=== PATIENT | female | born 1990 | race Caucasian/White ===

== ENCOUNTER 2020-10-26 12:42 | Emergency (ER) | payer BC, MEDICAID, SELFPAY ==
[2020-10-26 12:46] VITALS: BP 122/78; PULSE 84; RESP 18; TEMP 36.7; O2SAT 97; BMI 26.5
--- NOTE | 2020-10-26 13:03 | ED_ITS ---
HPI - Arrhythmia/Palpitations General: Chief Complaint: Arrhythmia/Palpitations Stated Complaint: irregular heart beat/sob Time Seen by Provider: 10/26/20 12:55 History of Present Illness: HPI narrative: Patient said she started smoking again about a month ago then started having palpitations in her chest- fgelt short of breath and also started drinking sodas again. And when she does both her heart feels like it is skipping beats and she feels short of breath. complaint: skipped beats Onset (ago): week(s) Duration: intermittent Severity: mild Associated symptoms: Reports other (Stress); Deny anxiety, nausea or vomiting Review of Systems Const: Denies: fever(s), chills or body aches Eyes: Denies: change in vision or blurry vision ENMT: Denies: throat pain or nasal congestion Card: Reports: palpitations and other (Shortness of breath with the palpitations); Denies: chest pain or dyspnea on exertion Resp: Denies: dyspnea, productive cough or non-productive cough GI: Denies: abdominal pain, nausea or vomiting Musc: Denies: extremity pain Skin/Breast: Denies: rash Neuro: Denies: headache(s) Psych: Denies: anxiety or depression Neptali/Lymph: Denies: easy bruising PFSH ED PFSH: Family History (Updated 10/22/20 @ 07:51 by Casandra Petty) Mother Hypertension Denies family history of Colon cancer Ovarian cancer Diabetes Heart disease Breast cancer Uterine cancer Thyroid disease Stroke Social History (Updated 10/22/20 @ 07:52 by Casandra Petty) Additional social history: - Tobacco use: former Alcohol use: denies Drug use: former-marijuana Female Reproductive History: Date of last menstrual period: 09/26/20 Physical Exam Const: COMMON NORMALS: no acute distress, average body habitus and patient oriented x3 HENMT: COMMON NORMALS: normocephalic HEAD & SCALP: normal to inspection and normocephalic FACE & SINUS: normal facial exam Eye: COMMON NORMALS: conjunctivae normal GENERAL EYE: appearance normal, both eyes and all related structures CONJUNCTIVA: Yes conjunctivae normal Neck/C-Spine: COMMON NORMALS: no JVD Chest: COMMONS NORMALS: normal inspection of the chest Resp: COMMON NORMALS: normal respiratory effort and clear to auscultation bilaterally AUSCULTATION: clear to auscultation bilaterally Cardio: COMMON NORMALS: no JVD, regular rate and regular rhythm RATE: regular rate RHYTHM: regular rhythm GI: COMMON NORMALS: Normal to inspection, nondistended, normoactive bowel sounds present Extremity: COMMON NORMALS: normal to inspection and full ROM Neuro: COMMON NORMALS: patient oriented x3 Course Vital Signs: Vital signs: Vital Signs Temperature 98.1 F 10/26/20 12:46 Pulse Rate 84 10/26/20 12:46 Respiratory Rate 18 10/26/20 12:46 Blood Pressure 122/78 10/26/20 12:46 Pulse Oximetry 97 10/26/20 12:46 MDM - Arrhythmia/Palpitations MDM Narrative: Medical decision making narrative: Spoke at length with patient about how smoking and drink caffeine can cause palpitations heart. Patient said she quit smoking for over a year and a half. Just started back appear this past month. And she can see were smoking and drinking sodas are tied into his palpitations. We discussed stopping smoking and going to caffeine free soda. She has a mom and brother who also are on medication for irregular heart rhythm. Patient is to follow-up with her family medical provider Discharge Plan Discharge Prescriptions: No Action norethindrone (contraceptive) 0.35 mg tablet 0.35 mg PO DAILY Qty: 84 RF: 3 Coding Level of Care Code ED Nutrition Worker for Pietro Nunez
--- NOTE | 2020-10-26 13:03 | XRR_ITS ---
PROCEDURE INFORMATION: Exam: XR Chest, 1 View Exam date and time: 10/26/2020 1:18 PM Age: 30 years old Clinical indication: Shortness of breath; Additional info: SOB TECHNIQUE: Imaging protocol: XR of the chest Views: 1 view. COMPARISON: No relevant prior studies available. FINDINGS: Lungs: Unremarkable. No consolidation. Pleural space: Unremarkable. No pleural effusion. No pneumothorax. Heart/Mediastinum: Unremarkable. No cardiomegaly. Bones/joints: Unremarkable. XR/XR chest 1V portable [id number] IMPRESSION: No acute findings.
--- NOTE | 2020-10-26 13:08 | ECG_ITS ---
[facility] Test Date: 2020-10-26 Pat Name: Madalyn Lou Department: Room: Gender: Female Registered Massage Therapist: : 1990 Requested By: Rasheed Byers Order Number: [id number] Casey MD: Maria Teresa Gold M.D. Measurements Intervals [place] Rate: 82 P: 29 CO: 108 QRS: 41 QRSD: 89 T: -24 QT: 340 QTc: 399 Interpretive Statements SINUS RHYTHM WITH SHORT CO INTERVAL NONSPECIFIC T-WAVE ABNORMALITY WARNING: DATA QUALITY MAY AFFECT INTERPRETATION No previous ECG available for comparison Electronically Signed On 10-27-2020 9:17:43 DIVIDEND CLERK by Maria Teresa Gold M.D. [id number]
[2020-10-26 13:34] VITALS: BP 108/67; PULSE 75; RESP 19; O2SAT 97
== END 2020-10-26 13:35 | disposition home or self-care (01) ==
PROVIDERS: Emergency Provider Nurse Practitioner Family; PCP Family Medicine
DX: R00.2 Palpitations (principal)
CPT/HCPCS: 12345; 71045; 93005; 99282; 99283

== ENCOUNTER 2021-02-15 11:36 | Emergency (ER) | payer BC, MEDICAID, SELFPAY ==
[2021-02-15 11:45] VITALS: BP 140/81; PULSE 104; RESP 15; TEMP 36.7; O2SAT 100; BMI 26.9
--- NOTE | 2021-02-15 12:04 | W.ED.RECABL ---
HPI - Recheck/Abnormal Lab/Rx General: Chief Complaint: Abdominal Pain Stated Complaint: wants checked for ectopic Time Seen by Provider: 02/15/21 11:51 History of Present Illness: HPI narrative: Patient thinks she is about 4-5 weeks and wants to be checked for ectopic because she had one 3 years ago with surgery and her OB at that time told her if she even got to have US early to determine. Patient denies any symptoms at this time, no bleeding and no pain. She denies fevers or urinary complaints or vaginal discharge Review of Systems Narrative: General: denies fatigue, fever or chills HEENT: denies ear pain, denies nasal congestion, denies vision changes, denies sore throat Neck: denies masses or pain Resp: denies cough, denies shortness of breath, denies pleuritic pain Cardio: denies chest pain, denies edema GI: denies abdominal pain, denies N/V/D, denies black/tarry or bloody stools : denies hematuria, denies dysuria Neuro: denies headache, denies dizziness, denies motor or sensory changes Musculoskeletal: denies pain, denies swelling Skin: denies rashes Psych: denies SI or HI Endocrine: denies thyroid symptoms, denies lymphadenopathy all over ROS reviewed and patient denies PFSH ED PFSH: Family History Mother Hypertension Denies family history of Colon cancer Ovarian cancer Diabetes Heart disease Breast cancer Uterine cancer Thyroid disease Stroke Social History Smoking and tobacco status: current every day smoker cigarettes Packs smoked per day: 0.5 Alcohol intake: never Substance/Drug Use: never Additional social history: - Tobacco use: former Alcohol use: denies Drug use: former-marijuana Female Reproductive History: Date of last menstrual period: 01/16/21 Physical Exam Narrative: EXAM NARRATIVE: General: no distress, HEENT: normal eyes, normal mouth, normal external nose Neck: FROM Resp: normal effort, no tachypnea, no stridor Cardio: normal rate, no edema GI: soft, flat, non distended, no pain on exam : deferred Neuro: normal coordination, normal speech, no gross motor or sensory deficits Musculo: normal ROM, no gross deformities Skin: no rash Psych: normal behavior normal mood and effect Course Vital Signs: Vital signs: Vital Signs Temperature 98.1 F 02/15/21 11:45 Pulse Rate 104 H 02/15/21 11:45 Respiratory Rate 18 02/15/21 12:50 Blood Pressure 140/81 02/15/21 11:45 Pulse Oximetry 100 02/15/21 11:45 MDM - Recheck/Abnormal Lab/Rx MDM Narrative: Medical decision making narrative: Discussed with patient we will check a beta hCG first to determine if she is far enough along so we could obtain an ultrasound. Unfortunately her beta quant is only 414 so an ultrasound is not can to provide any benefits at this time she continues to deny any symptoms or any pain she is leaving today to drive to [place] for a week so she wanted to try to get this ultrasound done before she left. I spoke to Dr. Truong OB on-call for Dr. Beauchamp and she agrees she needs an ultrasound and recommend she get one on Wednesday and they can schedule it as an outpatient however I do not have capabilities on the weekend to schedule any outpatient testing. Discussed with patient that if she has any type of symptoms while she is on vacation she needs to go to the local ER she is look for bleeding pain. Her salpingoectomy was on her right 3 years ago She has no left-sided pain at all today. Discussed with patient that OB did recommend she get an ultrasound done on Wednesday however patient has to leave today for her vacation so gave the patient strict precautions she has any symptoms while on her vacation she needs to go to the closest ER but on Wednesday she should still call OB to get this set up for when she returns Lab Data: Labs: Lab Results 02/15/21 Range/Units 12:20 Ser , Tony i-Qnt 414.10 mIU/mL Discharge Plan Discharge Patient Disposition: Home Clinical Impression: Qualifiers: Weeks of gestation: less than 8 weeks Qualified Code(s): Z3A.01 - Less than 8 weeks gestation of Condition: Stable Prescriptions: No Action Tylenol Extra Strength 500 mg Tablet 1,000 mg PO PRN RF: 0 Discharge Orders: Discharge ED (Routine); Ordered 02/15/21 Ordered By: Flavia Ricci Referrals: Javier Beauchamp MD [Physician] - 1-3 days (Patient needs US to determine location of ) Brionna Douglas, [Primary Care Provider] - Discharge Diet: Usual diet Discharge Activity: Resume usual activity Patient Instructions: Ectopic (ED) Activity Restrictions/Additional Instructions: Continue vitamins On Wednesday it is recommended you call Dr. Beauchamp's office explained to them you were seen in the emergency room and we spoke to Dr. Truong and she recommends you get an ultrasound on Wednesday but since she will be out of town she recommends you get it done as soon as you return. In the meantime if you have any type of pain or bleeding you need to report to the local emergency room for a pelvic ultrasound. Your hormone level today was 414 Coding Level of Care Code ED Production Truck Driver for Pietro Nunez
--- NOTE | 2021-02-15 12:14 | PC.PHAR ---
pt had nuvaring filled on 02/03/21 84d/s pt states she didnt use states she found out she was
[2021-02-15 12:50] VITALS: RESP 18
[2021-02-15 13:36] VITALS: RESP 18
== END 2021-02-15 13:37 | disposition home or self-care (01) ==
PROVIDERS: Emergency Provider Emergency Medicine; PCP Family Medicine
DX: O26.91 Pregnancy related conditions, unspecified, first trimester (principal); R10.9 Unspecified abdominal pain; Z3A.01 Less than 8 weeks gestation of pregnancy; O99.331 Smoking (tobacco) complicating pregnancy, first trimester; F17.210 Nicotine dependence, cigarettes, uncomplicated
CPT/HCPCS: 84702; 99282

== ENCOUNTER → 2022-04-14 09:55 | Outpatient (BNVA) | payer BC, MEDICAID, SELFPAY | PROVIDERS: PCP Family Medicine; Visit Provider Obstetrics & Gynecology | DX: Z32.01 Encounter for pregnancy test, result positive (principal) | CPT/HCPCS: 84702 ==

== ENCOUNTER 2022-04-27 07:26 | Outpatient (CLI) | payer BC, MEDICAID, SELFPAY ==
--- NOTE | 2022-04-27 07:45 | US_ITS ---
WS: [id number] EARLY OBSTETRICAL ULTRASOUND (<14 WEEKS). HISTORY: Follow-up. COMPARISON: 03/03/2021 Single intrauterine gestation is identified. No cardiac activity is identified on today's examination . The gestational sac is irregular and elongated with an adjacent small subchorionic hemorrhage. Ther e is a yolk sac present measuring 5 mm. There is an adjacent crown-rump length with no cardiac activi ty. Raysal-rump length and cardiac activity were identified on the study of 03/03/2021. The crown-rump length measures 0.4 cm was corresponds to a gestation of 6 weeks 1 day. No free fluid. Both ovaries are identified and negative. US/US OB transvaginal [id number] IMPRESSION: 1. Embryonic demise. No cardiac activity or appropriate growth of the gestatio n that was described on 03/03/2021. 2. Raysal-rump length corresponds to gestation of 6 weeks 1 day. No significant growth since the prior ultrasound of 03/03/2021. 3. Abnormal gestational sac and a small subchorionic hemorrhage.
== END 2022-04-27 07:27 | disposition home or self-care (01) ==
PROVIDERS: PCP Family Medicine; Visit Provider Obstetrics & Gynecology
DX: Z34.91 Encounter for supervision of normal pregnancy, unspecified, first trimester; Z3A.01 Less than 8 weeks gestation of pregnancy
CPT/HCPCS: 76817

== ENCOUNTER → 2022-04-29 10:10 | Outpatient (BNVA) | payer BC, MEDICAID, SELFPAY | PROVIDERS: PCP Family Medicine; Visit Provider Obstetrics & Gynecology | DX: Z34.90 Encounter for supervision of normal pregnancy, unspecified, unspecified trimester (principal) | CPT/HCPCS: 81000 ==

== ENCOUNTER 2022-05-10 10:59 | Emergency (ER) | payer BC, MEDICAID, SELFPAY ==
--- NOTE | 2022-05-10 11:24 | ED_ITS ---
HPI - General Adult General: Chief complaint: Recheck/Abnormal Lab/Rx Stated complaint: , not sure how long Time Seen by Provider: 05/10/22 11:06 Source: patient Mode of arrival: ambulatory Limitations: no limitations History of Present Illness: This patient returns to the emergency department because she is attempting to determine the results of her pelvic ultrasound performed on 06 May. She is G4 para 2 at approximately 9 weeks gestation from her last menstrual period of 01 Mar 2022. Part of her evaluation last week was a visit with Dr. Alexi FRANK who ordered an ultrasound. The patient had not heard the results of those ultrasound so therefore presents to the emergency department without information. She denies any current complaints to include fevers chills abdominal pain vaginal bleeding, cramping etc. Her only goal today is determining her ultrasound report. Associated symptoms: Reports no associated symptoms; Deny vomiting Review of Systems Const: Denies: fever(s) or chills GI: Denies: abdominal pain, vomiting or diarrhea : Denies: flank pain, difficulty voiding, dysuria, urinary frequency, vaginal bleeding, vaginal discharge or pelvic pain PFS ED PFSH: Medical History No pertinent past medical history neghx: htn,dm,thyroid,dvt/pe Surgical History Hx of unilateral salpingectomy (~02/19/18) Laparoscopic right partial salpingectomy by Dr. Groves at [facility] in [place], [place]. Family History Mother Hypertension Denies family history of Colon cancer Ovarian cancer Diabetes Heart disease Breast cancer Uterine cancer Thyroid disease Stroke Social History Smoking and tobacco status: current every day smoker cigarettes Packs smoked per day: 0.5 Alcohol intake: never Additional social history: - Tobacco use: former Alcohol use: denies Drug use: former-marijuana Female Reproductive History: Date of last menstrual period: 01/16/21 Physical Exam Narrative: EXAM NARRATIVE: The patient is alert makes good eye contact and is in no acute distress. She speaks in goal-directed sentences and is calm. Const: COMMON NORMALS: no acute distress and alert ORIENTATION/CONSCIOUSNESS: Yes oriented to person and Yes oriented to place HENMT: COMMON NORMALS: normocephalic HEAD & SCALP: normocephalic Eye: COMMON NORMALS: Equal, round and reactive pupils present PUPIL: Yes Equal, round and reactive pupils present Resp: COMMON NORMALS: normal respiratory effort EFFORT & INSPECTION: Yes able to speak in complete sentences Extremity: COMMON NORMALS: normal to inspection Neuro: SENSORIUM/ORIENTATION: Yes alert, Yes oriented to person and Yes oriented to place SPEECH: speech normal GAIT: Yes Normal gait present Psych: COMMON NORMALS: mental status grossly normal, cooperative and normal affect MDM - General Adult Medical Decision Making Patient without any clinical complaint only seeking imaging report information. I printed her ultrasound report from 06 May this year. It was read to her in completion. Report essentially was negative for any viable and showed findings consistent with a blighted ovum without any other ongoing pathology. I then consulted her attending metal storage worker Dr. Truong. She agreed to see the patient tomorrow to discuss treatment options. The patient is clinically stable without any complaints. She had no additional emergency department evaluation or treatment is indicated at this time. Patient was very appreciative of our time and interaction. She is stable at this time. I did discuss return precautions to include development of abdominal pain, vaginal bleeding or any other concerns. Medical Records I reviewed the patient's medical records. Discharge Plan Discharge Patient Disposition: Home Clinical Impression: Blighted ovum Condition: Stable Prescriptions: No Action No Known Home Medications Discharge Orders: Discharge ED (Routine); Ordered 05/10/22 Ordered By: Dmitri Mcgrath Referrals: Elsy Truong MD [Physician] - 1-3 days Brionna Douglas DO [Primary Care Provider] - Discharge Diet: Usual diet Discharge Activity: Resume usual activity Patient Instructions: Opioid Safety Activity Restrictions/Additional Instructions: Call Dr. Truong office in the morning to arrange follow-up with her tomorrow. She will discuss your treatment options at that time. If you develop any abdominal pain, vaginal bleeding other concerns return to this or the nearest emergency department immediately. Coding Level of Care Code ED Street Department Dispatcher for Pietro Nunez
[2022-05-10 11:32] VITALS: BMI 25.6
[2022-05-10 11:35] VITALS: BP 111/74; PULSE 92; RESP 16; TEMP 37.5; O2SAT 97
== END 2022-05-10 11:39 | disposition home or self-care (01) ==
PROVIDERS: Emergency Provider Emergency Medicine; PCP Family Medicine
DX: O02.0 Blighted ovum and nonhydatidiform mole (principal); F17.210 Nicotine dependence, cigarettes, uncomplicated
CPT/HCPCS: 99281

== ENCOUNTER 2022-06-30 10:45 | Day surgery (SDC) | payer BC, MEDICAID, SELFPAY ==
[2022-06-29 12:03] VITALS: BMI 23.8
--- NOTE | 2022-06-30 10:00 | P.ANESASSM_ITS ---
Pre-Anesthetic Assessment Height/Weight: Height 1.57 m Weight 58.967 kg Preop Diagnosis: Incomplete miscarriage Operation Date: 06/30/22 12:05 Proposed Procedures p Hysteroscopy, dilation and curettage with Mysosure 76315, [id number],O03.4(Not Applicable) - Elsy Truong MD s Dilation And Curettage (D&C)(Not Applicable) - Elsy Truong MD Familial anesthetic complications: none Was Beta Shannan taken within 24 hours: N/A Was Clonidine taken within 24 hours: N/A Last intake: Today coffee w/ heavy cream at 0930 Social Tobacco and No alcohol Exam alert, oriented x 3, clear to auscultation bilaterally and regular rate & rhythm Airway Submandibular: within normal limits Cervical ROM: within normal limits Mallampati: Class I Dentition: full History/ROS No significant complaints Pulmonary None reported CV/HEM None reported None reported Hepatic None reported GI None reported Metabolic None reported Musc/skel None reported Neuropsych None reported Anesthetic Plan ASA status: 1 Anesthesia: Anesthesia Evaluation Other Pertinent Information Discussed patient/case with Doctor Truong. I advised Doctor Truong that we would need to wait for the patient to be 6 hours NPO unless this case was more urgent in nature. Doctor Truong plans to reschedule the case for another day. I discussed rationale for delay of surgery with Ms. Lou including mechanism and risk factors for perioperative aspiration as well as the morbidity/mortality associacted with aspiration events. I apologized to the patient for the inconvenience of her delay and need to reschedule. I reviewed ASA guidelines for NPO status with the patient, as well as our general institutional policy to have patient's NPO after midnight. The patient said she was instructed to not eat or drink after midnight when she was called with pre op instructions, but that she was never told why she was to have nothing after midnight and she did not understand this direction. I advised to the patient that I would discuss this event with the RN who called her with pre op instructions and apologized that the communication was not more clear. Case to be rescheduled per Doctor Truong. Medications/Allergies Home Medications Medication Instructions Recorded Confirmed Last Taken Type No Known Home Medications 04/29/22 06/29/22 Unknown History Allergies Allergy/AdvReac Type Severity Reaction Status Date / Time fructose AdvReac weakness Uncoded 06/30/22 11:11 PFSH Anesthesia Medical History No pertinent past medical history neghx: htn,dm,thyroid,dvt/pe Surgical History Hx of unilateral salpingectomy (~02/19/18) Laparoscopic right partial salpingectomy by Dr. Groves at [facility] in [place], [place]. Family History Mother Hypertension Denies family history of Colon cancer Ovarian cancer Diabetes Heart disease Breast cancer Uterine cancer Thyroid disease Stroke Social History Smoking and tobacco status: current every day smoker (0.5 ppd) Female Reproductive History Date of last menstrual period: 01/16/21 Data Anesthesia Cardiac Studies: No Data to Display
[2022-06-30] MEDS: scopolamine 1.5 Patch 1 PATCH TRANSDERMA (10:30)
[2022-06-30 11:16] VITALS: BP 117/73; PULSE 81; RESP 17; TEMP 36.3; O2SAT 99
--- NOTE | 2022-06-30 11:45 | SUR.PREOP ---
1145-Patient had a couple of sips of coffee this morning at 9:30. Coffee had cream and sugar. Anesthesia was advised, Dr Truong was notified, and case will be cancelled today and will be rescheduled by clinic with patient. Linda in women's clinic was notified as well.
--- NOTE | 2022-06-30 11:58 | SUR.PREOP ---
1158-ancef, NS and Scop patch were all wasted due to case cancelled after pulled, spiked or placed on patient
--- NOTE | 2022-06-30 12:08 | P.HPUD_ITS ---
Surgery/Procedure H&P Update DATE OF PROCEDURE: June 30, 2022 DATE H&P PERFORMED: 06/24/22 H&P UPDATE INFORMATION: I have reviewed H&P completed within last 30 days and Changes to prior documentation as noted here CHANGES TO PREVIOUS DOCUMENTATION: The patient consumed coffee with creamer prior to admission for surgery. The case will be postponed. PREOP DIAGNOSIS: incomplete miscarriage PLANNED PROCEDURE: Operation Date: 06/30/22 12:05 Proposed Procedures p Hysteroscopy, dilation and curettage with Mysosure 34089, [id number] 120,52312,O03.4(Not Applicable) - Elsy Truong MD s Dilation And Curettage (D&C)(Not Applicable) - Elsy Truong MD
== END 2022-06-30 10:50 | disposition home or self-care (01) ==
LOC: OR 10:47
PROVIDERS: PCP Family Medicine; Visit Provider Obstetrics & Gynecology
PROC: 0UDB8ZZ Extraction of Endometrium, Via Natural or Artificial Opening Endoscopic (ICD-10-PCS; CPT 58558; principal; 2022-07-14 22:45)
PROC: (CPT 58120; 2022-07-14 22:45)
DX: O03.4 Incomplete spontaneous abortion without complication (principal); Z53.8 Procedure and treatment not carried out for other reasons
CPT/HCPCS: J7030

== ENCOUNTER 2022-07-07 | Day surgery (SDC) | payer BC, MEDICAID, SELFPAY ==
[2022-07-07 13:05] VITALS: BMI 23.8
== END 2022-07-07 23:00 | disposition home or self-care (01) ==
LOC: OR 08-09 19:47
PROVIDERS: PCP Family Medicine; Visit Provider Obstetrics & Gynecology
DX: Z01.818 Encounter for other preprocedural examination (principal)
CPT/HCPCS: 84702

== ENCOUNTER 2022-07-12 16:11 | Emergency (ER) | payer BC, MEDICAID, SELFPAY ==
[2022-07-12 16:15] VITALS: BP 118/76; PULSE 97; RESP 20; TEMP 36.7; O2SAT 100; BMI 23.8
--- NOTE | 2022-07-12 16:39 | W.ED.ABDPA2 ---
HPI - Abdominal Pain General: Chief Complaint: Abdominal Pain Stated Complaint: Possible missed miscarriage Time Seen by Provider: 07/12/22 16:20 Source: patient Mode of arrival: ambulatory History of Present Illness: 32-year-old female presents emergency room with complaint of abdominal pelvic pain. Patient had miscarriage that occurred evidently sometime in late May she has had D&C scheduled according to records 1 visit she made an June 30 when she arrived she had eaten that morning so the case was canceled. 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 There is a ultrasound report from 06 17 with a question of molar however subsequently confirmed to be retained products of conception on ultrasound from 07/07. Patient complaining of increasing pelvic cramping and discomfort now. No vaginal bleeding. MD elicited complaint: other (Pelvic pain) Associated Symptoms: Denies bloating, chills, coffee ground emesis, constipation, diarrhea, dysuria, fever(s), hematochezia, hematemesis, melena, nausea and vomiting Related Data: Date of Last Menstrual Period: 01/16/21 Review of Systems Const: Denies: fever(s), chills, body aches, change in appetite, fatigue or malaise ENMT: Denies: throat pain, ear or mastoid pain, nasal discharge or nasal congestion Card: Denies: chest pain, edema, dyspnea on exertion or orthopnea Resp: Denies: dyspnea, productive cough or non-productive cough GI: Denies: abdominal pain, nausea, vomiting, hematemesis, coffee ground emesis, diarrhea, constipation, bloating, hematochezia or melena : Denies: flank pain, difficulty voiding, dysuria, urinary frequency or urinary urgency Skin/Breast: Denies: rash or pruritus PFSH ED PFSH: Medical History No pertinent past medical history neghx: htn,dm,thyroid,dvt/pe Surgical History Hx of unilateral salpingectomy (~02/19/18) Laparoscopic right partial salpingectomy by Dr. Groves at [facility] in [place], [place]. Family History Mother Hypertension Denies family history of Colon cancer Ovarian cancer Diabetes Heart disease Breast cancer Uterine cancer Thyroid disease Stroke Social History Smoking and tobacco status: current every day smoker (0.5 ppd) Female Reproductive History: Date of last menstrual period: 01/16/21 Physical Exam Const: GENERAL APPEARANCE: cooperative and comfortable ORIENTATION/CONSCIOUSNESS: Yes awake, Yes oriented to person, Yes oriented to place and Yes oriented to time HENMT: COMMON NORMALS: normocephalic, atraumatic and hearing grossly normal bilaterally HEAD & SCALP: normocephalic and atraumatic Resp: COMMON NORMALS: normal respiratory effort, No retractions, No use of accessory muscles and clear to auscultation bilaterally AUSCULTATION: clear to auscultation bilaterally Cardio: COMMON NORMALS: regular rate, regular rhythm and No murmurs present (Cardio) RATE: regular rate RHYTHM: regular rhythm GI: COMMON NORMALS: Soft to palpation and No hepatosplenomegaly present AUSCULTATION: Yes normoactive bowel sounds PALPATION: Yes Soft to palpation, No Tenderness to palpation present (GI), No Guarding due to palpation present (GI) and Yes No hepatosplenomegaly present Extremity: COMMON NORMALS: normal to inspection, capillary refill normal, no clubbing, cyanosis or edema, no calf tenderness and no pedal edema Neuro: SENSORIUM/ORIENTATION: Yes oriented to person, Yes oriented to place and Yes oriented to time Skin: COMMON NORMALS: no rashes or lesions noted GENERAL SKIN EXAM: no rashes or lesions noted Course Vital Signs: Vital signs: Vital Signs Temperature 98.1 F 07/12/22 16:15 Pulse Rate 81 07/12/22 17:07 Respiratory Rate 20 H 07/12/22 16:15 Blood Pressure 106/62 07/12/22 17:07 Pulse Oximetry 97 07/12/22 17:07 Oxygen Delivery Me thod 07/12/22 17:07 MDM - Abdominal Pain Medical Decision Making Discussed with Dr. Truong. Did note a slight bump in her beta-hCG from the previous test. She not had any bleeding since the when she had an ultrasound that showed retained products of conception. Given that at this point repeat ultrasound not particularly helpful patient does probably still need to have the D&C document and is felt she could set it up as an outpatient and asked her to call the office later this week she believes there is a follow-up set for Wednesday or Wednesday encourage patient to contact the office tomorrow to confirm follow-up. Diclofenac as needed for pelvic cramping. Medical Records I reviewed the patient's medical records. Lab Data I reviewed the patient's lab results. : 07/12/22 16:50 Labs/Radiology: Laboratory Results WBC 5.3 10^3/uL (4.0-10.0) 07/12/22 16:50 RBC 4.16 10^6/uL (4.1-5.3) 07/12/22 16:50 Hgb 12.8 g/dL (11.5-15.3) 07/12/22 16:50 Hct 38.6 % (37.0-47.0) 07/12/22 16:50 MCV 92.8 fl (81-99) 07/12/22 16:50 MCH 30.8 pg (28.0-34.0) 07/12/22 16:50 MCHC 33.2 g/dL (30.0-36.0) 07/12/22 16:50 RDW 12.1 % (12.1-15.1) 07/12/22 16:50 Plt Count 217 10^3/cmm (130-400) 07/12/22 16:50 MPV 10.0 fL (7.4-10.4) 07/12/22 16:50 Neut % (Auto) 57.3 % 07/12/22 16:50 Lymph % (Auto) 34.3 % 07/12/22 16:50 [place] % (Auto) 6.5 % 07/12/22 16:50 Eos % (Auto) 1.1 % 07/12/22 16:50 Baso % (Auto) 0.4 % 07/12/22 16:50 Neut # (Auto) 3.01 10^3/uL (1.8-7.7) 07/12/22 16:50 Lymph # (Auto) 1.8 10^3/uL (0.8-4.8) 07/12/22 16:50 [place] # (Auto) 0.3 10^3/uL (0.2-0.9) 07/12/22 16:50 Eos # (Auto) 0.1 10^3/uL (0.0-0.8) 07/12/22 16:50 Baso # (Auto) 0.0 10^3/uL (0.0-0.1) 07/12/22 16:50 Nucleated RBC % (auto) 0 % 07/12/22 16:50 Nucleated RBCs # 0.0 /100WBC 07/12/22 16:50 HCG, Qual Positive (Negative) H 07/12/22 16:50 Ser , Semi-Qnt 48.48 mIU/mL 07/12/22 16:50 Rho(D) Type Positive 07/12/22 16:50 Discharge Plan Discharge Patient Disposition: Home Clinical Impression: Incomplete miscarriage Condition: Stable Prescriptions: New diclofenac sodium 75 mg tablet,delayed release (DR/EC) 75 mg PO Q12H PRN (Reason: pain) Qty: 20 0RF Discharge Orders: Discharge ED (Routine); Ordered 07/12/22 Ordered By: Kenny Mcdaniel Referrals: Brionna Douglas DO [Primary Care Provider] - Patient Instructions: Opioid Safety, Pain Management Coding Level of Care Code ED 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
[2022-07-12 16:59] LABS: Basophils % 0.4 %; Eosinophils # 0.1 10^3/uL (0.0-0.8); Eosinophils % 1.1 %; Hematocrit 38.6 % (37.0-47.0); Hemoglobin 12.8 g/dL (11.5-15.3); Lymphocytes # 1.8 10^3/uL (0.8-4.8); Lymphocytes % 34.3 %; Mean Corpuscular HGB Conc 33.2 g/dL (30.0-36.0); Mean Corpuscular Hemoglobin 30.8 pg (28.0-34.0); Mean Corpuscular Volume 92.8 fl (81-99); Monocytes # 0.3 10^3/uL (0.2-0.9); Monocytes % 6.5 %; Neutrophils # 3.01 10^3/uL (1.8-7.7); Neutrophils % 57.3 %; Nucleated Red Blood Cells % 0 %; Platelet Count 217 10^3/cmm (130-400); Red Blood Count 4.16 10^6/uL (4.1-5.3); Red Cell Distribution Width 12.1 % (12.1-15.1); White Blood Count 5.3 10^3/uL (4.0-10.0)
[2022-07-12 17:07] VITALS: BP 106/62; PULSE 81; O2SAT 97
[2022-07-12 17:14] LABS: HCG, Serum Qual Positive (Negative)
[2022-07-12 17:42] LABS: HCG Quantitative 48.48 mIU/mL
== END 2022-07-12 18:11 | disposition home or self-care (01) ==
PROVIDERS: Emergency Provider Family Medicine; PCP Family Medicine
DX: O03.4 Incomplete spontaneous abortion without complication (principal); F17.200 Nicotine dependence, unspecified, uncomplicated
CPT/HCPCS: 36415; 84702; 84703; 85025; 99283

== ENCOUNTER 2022-07-14 12:43 | Day surgery (SDC) | payer BC, MEDICAID, SELFPAY ==
[2022-07-14] VITALS (9 sets, daily range): BP systolic 90–109; BP diastolic 56–75; PULSE 70–87; RESP 14–19; TEMP 36.7–36.9; O2SAT 96–99
--- NOTE | 2022-07-14 12:37 | W.PM.OPSUD ---
Surgery/Procedure H&P Update DATE OF PROCEDURE: July 14, 2022 DATE H&P PERFORMED: 06/24/22 H&P UPDATE INFORMATION: I have reviewed H&P completed within last 30 days, I have examined patient prior to procedure and No changes to prior documentation PREOP DIAGNOSIS: incomplete miscarriage PLANNED PROCEDURE: Operation Date: 07/14/22 13:35 Proposed Procedures p Hysteroscopy w/ Myosure [id number]/O0.04(Not Applicable) - Elsy Truong MD s Dilation And Curettage (D&C)(Not Applicable) - Elsy Truong MD Related Problem List Diagnoses (1) Incomplete miscarriage:
[2022-07-14] MEDS: sodium chloride 0.9% 1,000 ML 30 ML IV (12:54)
--- NOTE | 2022-07-14 13:43 | P.ANESUD_ITS ---
Pre-Anesthetic Update Pre-Anesthetic Assessment: Date of Surgery/Procedure: 07/14/22 Preop Zuleyka gnosis: incomplete miscarriage Proposed Procedure: Operation Date: 07/14/22 13:35 Proposed Procedures p Hysteroscopy w/ Myosure [id number]/99747/O0.04(Not Applicable) - Elsy Truong MD s Dilation And Curettage (D&C)(Not Applicable) - Elsy Truong MD Any changes to Pre-Anesthetic Assessment?: No Last Intake: Intake Last Liquid Date 07/13/22 Last Liquid Time 21:00 Last Solid Date 07/13/22 Last Solid Time 21:00 Vitals: Temperature 98.4 F 07/14/22 11:57 Temperature Source Temporal Artery S can 07/14/22 11:57 Pulse Rate 83 07/14/22 11:57 Respiratory Rate 17 07/14/22 11:57 Blood Pressure 106/74 07/14/22 11:57 Blood Pressure Dayami n 84 07/14/22 11:57 Pulse Oximetry 97 07/14/22 11:57 Oxygen Delivery Me thod 07/14/22 11:57 Exam: Pre-Anes Outpt Exam: alert, oriented x 3, clear to auscultation bilaterally and regular rate & rhythm Cardiac Studies: No Data to Display
--- NOTE | 2022-07-14 14:41 | PM.OP ---
Operative Report Date of procedure: July 14, 2022 Pre-op diagnosis: Preop Diagnosis incomplete miscarriage Post-op diagnosis: completed miscarriage Post-op findings: 8 week sized uterus Procedure done: hysteroscopy, dilation and curettage with myosure Specimens removed/disposition: membranes (POC), endometrial curettings to pathology Surgeon: Elsy Truong Anesthesia: General Estimated blood loss (mL): 10 IV fluids (mL): 700 Complications: none Findings: 8 week sized uterus with membranes emerging from cervix Condition: stable Disposition: PACU Procedure: The patient was taken to the operating room where monitored anesthesia was administered and to be adequate. She was prepped and draped in the normal sterile fashion in the dorsal lithotomy position in [facility]. A weighted speculum was placed into the vagina and the anterior lip of the cervix grasped with a single-tooth tenaculum. There were what appeared to be membranes at the cervical os. This was grasped with a ringed forceps and it broke off. The uterus was sounded to 8 cm. The cervix was dilated to 16 [place]. The hysteroscope was advanced into the endometrial cavity. There was excessive tissue visualized. The MyoSure device was activated and the tissue was removed. Pictures were taken pre and post procedure. All instruments were removed. There were additional membranes at the cervical os. These were grasped and removed in their entirety. The patient tolerated the procedure well. Sponge lap and needle counts were correct x3. She was taken to the recovery room in stable condition.
--- NOTE | 2022-07-14 14:48 | PM.DCS ---
Discharge Providers Date of Admission: 07/14/22 Date of Discharge: July 14, 2022 Attending Provider at Admission: elsy eubanks Attending Provider at Discharge: Elsy Eubanks MD Primary Care Provider: Brionna Douglas DO Diagnoses at Discharge Discharge Diagnosis (1) Incomplete miscarriage: Status: Acute Reason for Visit Reason for Visit: 47034, 38416, 18240 Hospital Course Hospital Course The patient was admitted for surgery. She did well postoperatively and was ready for discharge. Discharge Data Studies Completed and Pending Pending at discharge Category Date Time Status ES surgery / GI images Routine Exams 07/14/22 13:48 Ordered Vitals Last Vital Signs Temp 98.2 F 07/14/22 14:40 Pulse 87 07/14/22 14:40 Resp 14 07/14/22 14:40 BP 106/75 07/14/22 14:40 Pulse Ox 97 07/14/22 11:57 O2 Del Method 07/14/22 14:40 Discharge Plan Discharge Patient Disposition: Home Condition: Stable Prescriptions: Continued No Known Home Medications Discharge Orders: Discharge Order (Routine); Ordered 07/14/22 Ordered By: Elsy Eubanks Discharge Attestations Time Spent in Discharge Care*: less than 30 min Quality Metrics Clinical Quality Measures [ No reported AMI, CVA or VTE this stay] Coding Level of Care Code Acute g [facility] note Diagnoses Incomplete miscarriage O03.4
--- NOTE | 2022-07-14 15:19 | ANE.PACU2 ---
Inpatient post-anesthesia follow up: Airway intact: Yes Vital signs: Temperature 98.0 F Pulse Rate 70 Respiratory Rate 16 Blood Pressure 90/56 Pulse Oximetry 99 Oxygen Delivery Me thod Room Air Oxygen Flow Rate Fraction of Inspir ed Oxygen Hydration adequate: Yes Nausea and vomiting: No Pain level: 3 Mental status: Baseline
== END 2022-07-14 16:10 | disposition home or self-care (01) ==
PROVIDERS: PCP Family Medicine; Visit Provider Obstetrics & Gynecology
PROC: 0UDB8ZZ Extraction of Endometrium, Via Natural or Artificial Opening Endoscopic (ICD-10-PCS; CPT 58558; principal; 2022-07-14 13:25)
PROC: (CPT 58120; 2022-07-14 13:25)
DX: O03.4 Incomplete spontaneous abortion without complication (principal); Z3A.08 8 weeks gestation of pregnancy
CPT/HCPCS: 58558; 88305; J1100; J1200; J1885; J2250; J2405; J2704; J3010; J7030

== ENCOUNTER → 2023-01-14 11:19 | Outpatient (BNVA) | payer BC, MEDICAID, SELFPAY | PROVIDERS: PCP Family Medicine; Visit Provider Nurse Practitioner Women's Health | DX: N92.6 Irregular menstruation, unspecified | CPT/HCPCS: 80307; 81000; 81025; 83036; 84315; 84443; 84702; 85027; 86592; 86762; 86803; 86850; 86900; 87086; 87806 ==

== ENCOUNTER → 2023-02-05 11:27 | Outpatient (BNVA) | payer BC, MEDICAID, SELFPAY | PROVIDERS: PCP Family Medicine; Visit Provider Obstetrics & Gynecology | DX: Z34.90 Encounter for supervision of normal pregnancy, unspecified, unspecified trimester (principal) | CPT/HCPCS: 81000; 82950; 87491; 87591; 87624; 87661 ==

== ENCOUNTER → 2023-02-11 09:00 | Outpatient (BNVA) | payer BC, MEDICAID, SELFPAY | PROVIDERS: PCP Family Medicine; Visit Provider Obstetrics & Gynecology | DX: O09.899 Supervision of other high risk pregnancies, unspecified trimester (principal) | CPT/HCPCS: 82951; 82952 ==

== ENCOUNTER → 2023-03-05 14:00 | Outpatient (BNVA) | payer BC, MEDICAID, SELFPAY | PROVIDERS: PCP Family Medicine; Visit Provider Obstetrics & Gynecology | DX: O09.899 Supervision of other high risk pregnancies, unspecified trimester (principal) | CPT/HCPCS: 81000; 81511; 87086; 87340 ==

== ENCOUNTER → 2023-04-08 15:24 | Outpatient (BNVA) | payer BC, MEDICAID, SELFPAY | PROVIDERS: PCP Family Medicine; Visit Provider Obstetrics & Gynecology | DX: O09.899 Supervision of other high risk pregnancies, unspecified trimester (principal) | CPT/HCPCS: 81000 ==

== ENCOUNTER → 2023-05-05 13:11 | Outpatient (BNVA) | payer BC, MEDICAID, SELFPAY | PROVIDERS: PCP Family Medicine; Visit Provider Obstetrics & Gynecology | DX: O09.899 Supervision of other high risk pregnancies, unspecified trimester (principal) | CPT/HCPCS: 81000 ==

== ENCOUNTER → 2023-05-26 11:48 | Outpatient (BNVA) | payer BC, MEDICAID, SELFPAY | PROVIDERS: PCP Family Medicine; Visit Provider Obstetrics & Gynecology | DX: O09.899 Supervision of other high risk pregnancies, unspecified trimester (principal) | CPT/HCPCS: 81000; 82950; 85025 ==

== ENCOUNTER → 2023-06-11 15:04 | Outpatient (BNVA) | payer BC, MEDICAID, SELFPAY | PROVIDERS: PCP Family Medicine; Visit Provider Obstetrics & Gynecology | DX: O09.899 Supervision of other high risk pregnancies, unspecified trimester (principal) | CPT/HCPCS: 81000 ==

== ENCOUNTER → 2023-06-30 09:28 | Outpatient (BNVA) | payer BC, MEDICAID, SELFPAY | PROVIDERS: PCP Family Medicine; Visit Provider Obstetrics & Gynecology | DX: O09.899 Supervision of other high risk pregnancies, unspecified trimester (principal) | CPT/HCPCS: 81000 ==

== ENCOUNTER → 2023-07-16 10:29 | Outpatient (BNVA) | payer BC, MEDICAID, SELFPAY | PROVIDERS: PCP Family Medicine; Visit Provider Obstetrics & Gynecology | DX: O09.899 Supervision of other high risk pregnancies, unspecified trimester (principal) | CPT/HCPCS: 81000 ==

== ENCOUNTER → 2023-07-26 14:30 | Outpatient (BNVA) | payer BC, MEDICAID, SELFPAY | PROVIDERS: PCP Family Medicine; Visit Provider Obstetrics & Gynecology | DX: O09.899 Supervision of other high risk pregnancies, unspecified trimester (principal) | CPT/HCPCS: 81000; 87081 ==

== ENCOUNTER 2023-07-27 11:00 | Outpatient (CLI) | payer BC, MEDICAID, SELFPAY ==
[2023-07-27] VITALS (12 sets, daily range): BP systolic 101–112; BP diastolic 58–72; PULSE 76–95; RESP 16–18; TEMP 35.3
--- NOTE | 2023-07-27 12:55 | USR_ITS ---
PROCEDURE INFORMATION: Exam: US Biophysical Profile Without Non-Stress Test Exam date and time: 07/27/2023 1:18 PM Age: 33 years old Clinical indication: Screening exam; Routine US screening of fetus; Third trimester (=28 weeks 0 days); ; Additional info: R/O abruption, biophysical profile as well TECHNIQUE: Imaging protocol: US biophysical profile without non-stress testing. COMPARISON: US OB >= 14 weeks fetus [facility] 04/06/2023 11:48 AM FINDINGS: BIOPHYSICAL PROFILE: breathing movement (BPP): 2 out of 2. body movement (BPP): 2 out of 2. tone (BPP): 2 out of 2. Amniotic fluid (BPP): 2 out of 2. BRANDIE is 10.57 cm with deepest pocket 3.7 cm. Cervix appears long and closed, measuring 5.1 cm. Vertex presentation. Anterior placenta, grade 1-2. No findings to indicate abruption. Gestational age history 36 weeks 4 days. US/US OB BPP NST 42867 IMPRESSION: Biophysical profile score is 8 out of 8.
--- NOTE | 2023-07-27 13:07 | PM.OBTRLD ---
OB L&D Triage Visit Information: Date of evaluation: 07/27/23 Comments/Additional reason(s) for visit: 33yo female at 37.1 wkIUP, with JOSEY 08/16/23 c/o Abd pain onset yesterday after confrontation with a chicken in her car. As she was standing outside of car and attempting to remove chicken from car she denies hitting abd against steering wheel or any other objects but she did hit against the seat. She denies vaginal bleeding or LOF. She acknowledges good movement and a crampy sensation. EFM?uterine irritability, category 1. Evaluation: Baseline heart rate: 130 monitor accelerations: Present 15x15 monitor decelerations: None Cervical dilation (cm): 1 Cervical effacement (%): 50 station: -2 Vital signs: Vital Signs - 24 hr 07/27/23 11:15 07/27/23 11:31 07/27/23 11:45 Temperature 95.5 F L Pulse Rate 95 92 95 Respiratory Rate 16 Blood Pressure 103/72 108/66 110/71 07/27/23 11:14 07/27/23 12:01 07/27/23 12:15 Temperature Pulse Rate 93 87 Respiratory Rate 18 Blood Pressure 103/69 101/64 07/27/23 12:30 07/27/23 12:46 07/27/23 13:01 Temperature Pulse Rate 88 78 93 Respiratory Rate Blood Pressure 103/65 107/63 112/58 07/27/23 11:45 Temperature Pulse Rate Respiratory Rate 16 Blood Pressure Care JOSEY Calculator Estimated Delivery Date Method Current WG Current Estimate 08/20/23 LMP (Certain) 36w 4d Final Diagnosis Final Diagnosis (1) Supervision of other high-risk : Status: Acute Code(s): O09.899 - Supervision of other high risk pregnancies, unspecified trimester (2) 37 weeks gestation of : Status: Acute Code(s): Z3A.37 - 37 weeks gestation of (3) Abdominal pain affecting : Plan: 1. Will get biophysical profile and evaluation of placenta to rule out abruption. 2. We will discharge patient to home after OB ultrasound but advised if pain increases in intensity or leakage of fluid or vaginal bleeding patient is to return to labor and delivery for evaluation. 3. Patient to follow-up with OB provider as scheduled. Status: Acute Code(s): O26.899 - Other specified related conditions, unspecified trimester; R10.9 - Unspecified abdominal pain (4) History of gestational diabetes in prior , currently : Status: Acute Code(s): O09.299 - Supervision of with other poor reproductive or obstetric history, unspecified trimester; Z86.32 - Personal history of gestational diabetes Coding Level of Care Code Acute Code for Chg Fwd Diagnoses Supervision of other high-risk O09.899 37 weeks gestation of Z3A.37 Abdominal pain affecting O26.899; R10.9 History of gestational diabetes in prior , currently O09.299; Z86.32
== END 2023-07-27 13:52 | disposition home or self-care (01) ==
LOC: OPOB 11:04 → OBGYN 11:05
PROVIDERS: PCP Family Medicine; Visit Provider Obstetrics & Gynecology
DX: O09.299 Supervision of pregnancy with other poor reproductive or obstetric history, unspecified trimester (principal); O09.899 Supervision of other high risk pregnancies, unspecified trimester; Z3A.37 37 weeks gestation of pregnancy; R10.9 Unspecified abdominal pain; Z86.32 Personal history of gestational diabetes
CPT/HCPCS: 59025; 76819; 99211

== ENCOUNTER 2023-08-02 18:18 | Outpatient (CLI) | payer BC, MEDICAID, SELFPAY ==
[2023-08-02] VITALS (10 sets, daily range): BP systolic 111–121; BP diastolic 67–80; PULSE 78–96; RESP 16; TEMP 36.3; BMI 26.2
== END 2023-08-02 21:17 | disposition home or self-care (01) ==
LOC: OPOB 18:18 → OBGYN 18:19
PROVIDERS: PCP Family Medicine; Visit Provider Obstetrics & Gynecology
DX: O24.419 Gestational diabetes mellitus in pregnancy, unspecified control (principal); Z3A.00 Weeks of gestation of pregnancy not specified; R10.9 Unspecified abdominal pain
CPT/HCPCS: 59025; 81000; 99211

== ENCOUNTER → 2023-08-12 09:38 | Outpatient (BNVA) | payer BC, MEDICAID, SELFPAY | PROVIDERS: PCP Family Medicine; Visit Provider Nurse Practitioner Women's Health | DX: O09.899 Supervision of other high risk pregnancies, unspecified trimester (principal); Z3A.38 38 weeks gestation of pregnancy | CPT/HCPCS: 81000 ==

== ENCOUNTER 2023-08-13 21:30 | Inpatient (IN) | payer BC, MEDICAID, SELFPAY ==
[2023-08-13] VITALS (10 sets, daily range): BP systolic 116–135; BP diastolic 57–86; PULSE 78–100; TEMP 35.9; BMI 26.2
[2023-08-13] MEDS: lactated ringers 1,000 ML 999 ML IV (21:49)
[2023-08-13 21:54] LABS: Basophils % 0.2 %; Eosinophils # 0.1 10^3/uL (0.0-0.8); Eosinophils % 0.6 %; Hematocrit 33.4 % (36-47); Lymphocytes # 3.6 10^3/uL (0.8-4.8); Lymphocytes % 27.6 %; Mean Corpuscular HGB Conc 34.7 g/dL (30-55); Mean Corpuscular Hemoglobin 32.5 pg (27-33); Mean Corpuscular Volume 93.6 fl (85-98); Mean Platelet Volume 10.1 fL (7.4-10.4); Monocytes # 1.2 10^3/uL (0.2-0.9); Monocytes % 9.1 %; Neutrophils # 7.99 10^3/uL (1.8-7.7); Neutrophils % 61.9 %; Nucleated Red Blood Cells % 0 %; Platelet Count 251 10^3/cmm (157-399); Red Blood Count 3.57 10^6/uL (3.85-5.65); Red Cell Distribution Width 12.6 % (12.1-15.1); White Blood Count 12.92 10^3/uL (3.29-11.43)
--- NOTE | 2023-08-13 22:50 | P.PN_ITS ---
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
--- NOTE | 2023-08-13 23:44 | PM.OBGYHP ---
Providers/Chief Complaint Admitting Physician: Ben De Leon MD Primary SKIP LOAD DRIVER: Ben De Leon MD Primary Care Provider: Brionna Douglas DO Chief Complaint: possible contractions HPI SKIP LOAD DRIVER History of Present Illness 33 y.o. A2 EDC August 16, 2023 At 39 w 4 d No complications Presents c/o painful UCs No bleeding, fluid leakage + active movements POBHx: x two, uncomplicated h/o GDM previous , diet-controlled h/o ectopic x one, unilateral salpingectomy Medications/Allergies Home Medications Medication Instructions Recorded Confirmed Last Taken Type vitamins no.119-iron tab PO DAILY 06/11/23 08/12/23 Unknown History fumarate 29 mg-folic acid 1 mg tablet Allergies Allergy/AdvReac Type Severity Reaction Status Date / Time fructose AdvReac weakness Uncoded 08/12/23 08:46 PFSH SKIP LOAD DRIVER PFSH: Medical History History of ectopic Incomplete miscarriage No pertinent past medical history neghx: htn,dm,thyroid,dvt/pe Surgical History Hx of unilateral salpingectomy (~02/19/18) Laparoscopic right partial salpingectomy by Dr. Groves at [facility] in [place], [place]. Family History Mother Hypertension Denies family history of Colon cancer Ovarian cancer Diabetes Heart disease Breast cancer Uterine cancer Thyroid disease Stroke Social History Smoking and tobacco/nicotine status: current every day tobacco/nicotine user (0.5 ppd) Substance/Drug Use: never History History History 5 Term 2 0 Miscarriages/Ectopic 2 Living Children 2 Care JOSEY Calculator Estimated Delivery Date Method Current WG Current Estimate 08/20/23 LMP (Certain) 39w 0d Vitals/I&O/Wt Last Vital Signs Temp 96.6 F L 08/13/23 21:13 Pulse 78 08/13/23 23:36 BP 121/65 08/13/23 23:36 Physical Exam Narrative: Weight 150 lbs; 5?3? VS normal FH 37 cm Cx: 5 cm / 90 / -2 External monitor: regular UCs heart tracing good variability, + accelerations Data 08/13/23 21:47 Results Labs OB ([facility]): Obstetrics US 04/06/23 Obstetrics US/Biophysical Profile 07/27/23 Blood Type O Positive 01/14/23 Antibody Screen Negative 01/14/23 Hct 33.4 % (36-47) L 08/13/23 Hgb 11.60 g/dL (11.27-16.99) 08/13/23 Rho(D) Type Positive 01/14/23 Plt Count 251 10^3/cmm (157-399) 08/13/23 Hep Bs Antigen Non-reactive (Nonreactive) 03/05/23 Hepatitis C Antibody Non-reactive (Nonreactive) 01/14/23 Rubella IgG Antibody 108.2 IU/mL (0.0-10.0) H 01/14/23 RPR Nonreactive (Nonreactive) 01/14/23 HIV 1&2 Ab & HIV 1 Ag Non-reactive (Non-Reactiv) 01/14/23 TSH 1.76 uIU/mL (0.27-4.20) 01/14/23 Quad Test Interpret See note 03/05/23 Gest Glucose Tolerance 85 mg/dL 05/26/23 Hemoglobin A1c 4.8 % (4.0-6.0) 01/14/23 Estriol MoM 0.54 03/05/23 Ser , Semi-Qnt 58954.00 mIU/mL 01/14/23 HCG, Qual Positive (Negative) H 01/14/23 Urine Opiates Screen Negative ng/mL (Negative) 01/14/23 Ur Barbiturates Screen Negative ng/mL (Negative) 01/14/23 Ur Phencyclidine Scrn Negative ng/mL (Negative) 01/14/23 Ur Amphetamines Screen Negative ng/mL (Negative) 01/14/23 U Benzodiazepines Scrn Negative ng/mL (Negative) 01/14/23 Urine Cocaine Screen Negative ng/mL (Negative) 01/14/23 U Marijuana (THC) Screen Negative ng/mL (Negative) 01/14/23 Micro Urine Specimen 03/05/23 Pap Smear Interpret See note 02/05/23 A&P Assessment and plan (1) Supervision of other high-risk : 39 w 4 d Active labor Fetus reassuring Admit Expectant management h/o x two Attestations Medical Necessity Statement*: patient at 39 w 4 d gestation, with active labor Coding Level of Care Code Acute Code for Chg Fwd Diagnoses Supervision of other high-risk O09.899 Time Spent (min) 20
--- NOTE | 2023-08-13 23:51 | PM.DELIVERY ---
Delivery Note: Date of delivery: August 13, 2023 Pre-delivery diagnoses: 39 w 4 d active labor Post-delivery diagnoses: same Procedure: spontaneous vaginal delivery Op report anesthesia: None Delivering Physician: Ben De Leon MD Estimated blood loss (mL): 300 Findings: , vigorous female Normal placenta and cord Cord gases and blood obtained No episiotomy or lacerations EBL: 300 cc No complications Pre-Delivery Course: patient admitted at 5 cm progressed to complete after two pushes Delivery: Spontaneous vginal delivery Post-Delivery Status: good History History History 5 Term 2 0 Miscarriages/Ectopic 2 Living Children 2 A&P Assessment and plan (1) Vaginal delivery: plan routine care Coding Level of Care Code Acute Code for Chg Fwd Diagnoses Vaginal delivery O80 Time Spent (min) 40
[2023-08-14] VITALS (10 sets, daily range): BP systolic 94–116; BP diastolic 62–78; PULSE 78–97; RESP 17–18; TEMP 36.6–37.1; O2SAT 96–99
[2023-08-14] MEDS: HYDROcodone-acetaminophen 5-325 mg Tablet PO ×2 (07:15→21:32)
[2023-08-14] MEDS: ibuprofen 800 mg tablet PO ×3 (08:56→21:30)
[2023-08-14] MEDS: docusate sodium 100 mg Capsule PO ×2 (08:56→18:08)
[2023-08-14] MEDS: prenatal vitamin Capsule 1 CAP PO (08:57)
[2023-08-14 11:30] LABS: Hematocrit 29.1 % (36-47); Mean Corpuscular HGB Conc 34.4 g/dL (30-55); Mean Corpuscular Hemoglobin 32.3 pg (27-33); Mean Corpuscular Volume 93.9 fl (85-98); Mean Platelet Volume 10.3 fL (7.4-10.4); Platelet Count 235 10^3/cmm (157-399); Red Cell Distribution Width 12.8 % (12.1-15.1); White Blood Count 11.95 10^3/uL (3.29-11.43)
--- NOTE | 2023-08-14 14:40 | P.PN_ITS ---
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 Subjective: Interval history: no c/o no bleeding, pain eating, voiding, ambulating well caring for without any problems Labor: Station: +2 Amniotic Membrane Status: Ruptured Monitor Mode: External Contraction Pattern: Regular Vitals/I&O/Wt Last Vital Signs Temp 98.4 F 08/14/23 09:30 Pulse 91 08/14/23 09:30 Resp 17 08/14/23 06:30 BP 105/69 08/14/23 09:30 Pulse Ox 96 08/14/23 09:30 O2 Del Method Room Air 08/14/23 09:30 08/13/23 08/14/23 08/14/23 22:59 06:59 14:59 Output Total 1000 / 1000 Balance -1000 / -1000 Weight last 48 hrs Weight 143 lb Physical Exam Narrative: afebrile, VS normal comfortable, awake, alert Lungs: clear Cor: RRR Abd: soft, nontender. fundus firm Ext: no edema; nontender Data 08/14/23 11:12 A&P Assessment and plan (1) Vaginal delivery: PPD #1 doing well discharge home today instructions and precautions given call/return if fever, chills, headache, blurry vision, nausea, vomiting, abdominal pain; vaginal bleeding or discharge; shortness of breath, chest pain, leg pains or swelling; inability to void, perineal pain or swelling; feelings of depression or mood changes; thoughts of suicide or harming others; inability to care for baby. f/u in 6 weeks or PRN Attestations Medical Necessity Statement*: patient s/p vaginal delivery, plan discharge home today Coding Level of Care Code Acute Code for Chg Fwd Diagnoses Vaginal delivery O80 Time Spent (min) 20
--- NOTE | 2023-08-14 14:42 | PM.OBGYDC ---
Discharge Providers INTERACTIVE MEDIA PROJECT MANAGER Date of Admission: 08/13/23 21:30 Date of Discharge: 08/14/23 Attending Provider at Admission: Ben De Leon MD Attending Provider at Discharge: Ben De Leon MD Consults: none Primary INTERACTIVE MEDIA PROJECT MANAGER: Ben De Leon MD Primary Care Provider: Brionna Douglas DO Diagnoses at Discharge Discharge Diagnosis (1) Vaginal delivery: Details from hospital stay: patient admitted for active labor at term delivered vaginally no complications Status: Acute Reason for Visit Reason for Visit: possible contractions Brief History: 33 y.o. A2, EDC August 16, 2023 presented with active labor Hospital Course Hospital Course patient progressed and delivered vaginally without any complications Information Peripartum Data: Infant Delivery Method: Vaginal Laceration description: None Episiotomy description: None complications: none Physical Exam Narrative: afebrile, VS normal comfortable, awake, alert Lungs: clear Cor: RRR Abd: soft, nontender. fundus firm Ext: no edema; nontender History History History 5 Term 2 0 Miscarriages/Ectopic 2 Living Children 2 Discharge Data Studies Completed and Pending Laboratory Results WBC 11.95 10^3/uL (3.29-11.43) H 08/14/23 11:12 RBC 3.10 10^6/uL (3.85-5.65) L 08/14/23 11:12 Hgb 10.00 g/dL (11.27-16.99) L 08/14/23 11:12 Hct 29.1 % (36-47) L 08/14/23 11:12 MCV 93.9 fl (85-98) 08/14/23 11:12 MCH 32.3 pg (27-33) 08/14/23 11:12 MCHC 34.4 g/dL (30-55) 08/14/23 11:12 RDW 12.8 % (12.1-15.1) 08/14/23 11:12 Plt Count 235 10^3/cmm (157-399) 08/14/23 11:12 MPV 10.3 fL (7.4-10.4) 08/14/23 11:12 Neut % (Auto) 61.9 % 08/13/23 21:47 Lymph % (Auto) 27.6 % 08/13/23 21:47 [place] % (Auto) 9.1 % 08/13/23 21:47 Eos % (Auto) 0.6 % 08/13/23 21:47 Baso % (Auto) 0.2 % 08/13/23 21:47 Neut # (Auto) 7.99 10^3/uL (1.8-7.7) H 08/13/23 21:47 Lymph # (Auto) 3.6 10^3/uL (0.8-4.8) 08/13/23 21:47 Linn # (Auto) 1.2 10^3/uL (0.2-0.9) H 08/13/23 21:47 Eos # (Auto) 0.1 10^3/uL (0.0-0.8) 08/13/23 21:47 Baso # (Auto) 0.0 10^3/uL (0.0-0.1) 08/13/23 21:47 Nucleated RBC % (auto) 0 % 08/13/23 21:47 Nucleated RBCs # 0.0 /100WBC 08/13/23 21:47 Procedures Performed vaginal delivery Vitals Last Vital Signs Temp 98.4 F 08/14/23 09:30 Pulse 91 08/14/23 09:30 Resp 17 08/14/23 06:30 BP 105/69 08/14/23 09:30 Pulse Ox 96 08/14/23 09:30 O2 Del Method Room Air 08/14/23 09:30 Results Labs OB ([facility]): Obstetrics US 04/06/23 Obstetrics US/Biophysical Profile 07/27/23 Blood Type O Positive 01/14/23 Antibody Screen Negative 01/14/23 Hct 29.1 % (36-47) L 08/14/23 Hgb 10.00 g/dL (11.27-16.99) L 08/14/23 Rho(D) Type Positive 01/14/23 Plt Count 235 10^3/cmm (157-399) 08/14/23 Hep Bs Antigen Non-reactive (Nonreactive) 03/05/23 Hepatitis C Antibody Non-reactive (Nonreactive) 01/14/23 Rubella IgG Antibody 108.2 IU/mL (0.0-10.0) H 01/14/23 RPR Nonreactive (Nonreactive) 01/14/23 HIV 1&2 Ab & HIV 1 Ag Non-reactive (Non-Reactiv) 01/14/23 TSH 1.76 uIU/mL (0.27-4.20) 01/14/23 Quad Test Interpret See note 03/05/23 Gest Glucose Tolerance 85 mg/dL 05/26/23 Hemoglobin A1c 4.8 % (4.0-6.0) 01/14/23 Estriol MoM 0.54 03/05/23 Ser , Semi-Qnt 66772.00 mIU/mL 01/14/23 HCG, Qual Positive (Negative) H 01/14/23 Urine Opiates Screen Negative ng/mL (Negative) 01/14/23 Ur Barbiturates Screen Negative ng/mL (Negative) 01/14/23 Ur Phencyclidine Scrn Negative ng/mL (Negative) 01/14/23 Ur Amphetamines Screen Negative ng/mL (Negative) 01/14/23 U Benzodiazepines Scrn Negative ng/mL (Negative) 01/14/23 Urine Cocaine Screen Negative ng/mL (Negative) 01/14/23 U Marijuana (THC) Screen Negative ng/mL (Negative) 01/14/23 Micro Urine Specimen 03/05/23 Pap Smear Interpret See note 02/05/23 Discharge Plan Discharge Patient Disposition: Home Condition: Stable Prescriptions: Continued PNV 119-iron fum-folic acid 29 mg iron- 1 mg tablet 1 tab PO DAILY Discharge Orders: Discharge Order (Routine); Ordered 08/14/23 Ordered By: Ben De Leon Discharge Diet: Usual diet Discharge Activity: Increase activity as tolerated Patient Instructions: Opioid Safety Discharge Attestations INTERACTIVE MEDIA PROJECT MANAGER Time Spent in Discharge Care*: less than 30 min Coding Level of Care Code Acute Code for Chg Fwd Diagnoses Vaginal delivery O80 Time Spent (min) 20
[2023-08-14] MEDS: lanolin oint 7 gm 1 APPLIC TOPICAL (23:09)
[2023-08-14] MEDS: benzocaine-menthol 78 gm Canister 1 SPRAY TOPICAL (23:09)
== END 2023-08-14 23:57 | disposition home or self-care (01) | DRG 807 ==
LOC: OPOB 08-14 06:12 → OBGYN 08-14 06:13
PROVIDERS: Admitting Provider Obstetrics & Gynecology; PCP Family Medicine; Visit Provider Obstetrics & Gynecology
DX: O99.334 Smoking (tobacco) complicating childbirth (principal); Z37.0 Single live birth; F17.210 Nicotine dependence, cigarettes, uncomplicated; Z3A.39 39 weeks gestation of pregnancy
CPT/HCPCS: 36415; 59025; 59409; 85025; 85027; 99211; J2795; J7120